=== PATIENT | male | born 1955 ===

== ENCOUNTER 2017-07-24 04:34 | Emergency (ER) | payer OTHER ==
[2017-07-24 05:00] VITALS: BMI 29.2
[2017-07-24 05:02] VITALS: BP 158/85; PULSE 68; RESP 19; TEMP 99.8; O2SAT 97
[2017-07-24 05:18] LABS: RBC URINE 4 /hpf (0-3); URINE BACTERIA RARE (<OCC); URINE BILIRUBIN NEGATIVE (NEGATIVE); URINE BLOOD NEGATIVE (NEGATIVE); URINE COLOR AMBER (YELLOW); URINE GLUCOSE (UA) NEG (Normal); URINE KETONE NEGATIVE (NEGATIVE); URINE LEUKOCYTE ESTERASE NEG Leu/uL (Negative); URINE PROTEIN NEGATIVE (NEGATIVE); WBC URINE 4 /hpf (0-5)
== END 2017-07-24 05:32 | disposition home or self-care (01) ==
LOC: H.ER 04:34
DX: N39.0 Urinary tract infection, site not specified (principal)

== ENCOUNTER 2017-07-24 21:58 | Observation (INO) | payer OTHER ==
[2017-07-24 21:59] VITALS: BMI 29.2
--- NOTE | 2017-07-24 22:29 | ED PDOC ---
HPI: Male Pain Time Seen by Provider: 07/24/17 22:19 Chief Complaint (Nursing): Male Genitourinary Chief Complaint (Provider): Dysuria History Per: Patient History/Exam Limitations: no limitations Onset/Duration Of Symptoms: Hrs Additional Complaint(s): Patient is a 62 y/o male with no significant past medical history presenting to the emergency department for inability to urinate since 2 PM. Reports feeling the urge to urinate but is unable to. Also notes lower supraprubic abdominal pain. Denies back pain, fever, or other complaints. PCP: Dr. Bennie Moeller Past Medical History Reviewed: Historical Data, Nursing Documentation, Vital Signs Vital Signs: Last Vital Signs Temp 99.0 F 07/24/17 22:13 Pulse 65 07/24/17 22:13 Resp 16 07/24/17 22:13 BP 173/99 H 07/24/17 22:13 Pulse Ox 99 07/24/17 22:13 - Medical History PMH: CAD Denies: Arthritis, Asthma, Atrial Fibrillation, CHF, COPD, Diabetes, HTN, Hypercholesterolemia, Seizures - Surgical History Surgical History: Denies: CABG, Pacemaker - Family History Family History: Denies: CAD - Social History Current smoker - smoking cessation education provided: No Ex-Smoker (has not smoked in the last 12 months): No Alcohol: None Drugs: Denies - Immunization History Hx Tetanus Toxoid Vaccination: No Hx Influenza Vaccination: No Hx Pneumococcal Vaccination: No - Home Medications Home Medications: Ambulatory Orders Medication Instructions Recorded Cyclobenzaprine [Flexeril] 10 mg PO TID 07/18/16 [id number] Ethyl Esters 1 GM 1 gm PO BID 07/18/16 [Lovaza] Omeprazole 20 mg PO DAILY 07/18/16 Pravastatin Sodium [Pravachol] 40 mg PO DAILY 07/18/16 Clopidogrel [Plavix] 75 mg PO DAILY 07/31/16 Metoprolol Tartrate [Lopressor] 50 mg PO BID 07/31/16 Olmesartan [BenicarNf] 20 mg PO DAILY 07/31/16 Aspirin [Adult Low Dose Aspirin EC] 1 tab PO DAILY 08/06/16 Ticagrelor [Brilinta] 90 mg PO BID #0 tab 09/03/16 Ciprofloxacin [Cipro] 500 mg PO BID 7 Days tab 07/24/17 Ibuprofen [Motrin Tab] 600 mg PO Q6 #30 tab 07/24/17 - Allergies Allergies/Adverse Reactions: Allergies Allergy/AdvReac Type Severity Reaction Status Date / Time No Known Allergies Allergy Verified 07/24/17 22:13 Review of Systems ROS Statement: Except As Marked, All Systems Reviewed And Found Negative Constitutional: Negative for: Fever Genitourinary Male: Positive for: Dysuria (inability to urinate), Other (lower suprapubic pain) Musculoskeletal: Negative for: Back Pain Physical Exam - Reviewed Nursing Documentation Reviewed: Yes Vital Signs Reviewed: Yes - Physical Exam Appears: Positive for: Well, Non-toxic, No Acute Distress Head Exam: Positive for: ATRAUMATIC, NORMAL INSPECTION, NORMOCEPHALIC Skin: Positive for: Normal Color, Warm, Dry Eye Exam: Positive for: Normal appearance ENT: Positive for: Normal ENT Inspection Neck: Positive for: Normal Cardiovascular/Chest: Positive for: Regular Rate, Rhythm. Negative for: Murmur Respiratory: Positive for: Normal Breath Sounds. Negative for: Accessory Muscle Use, Respiratory Distress Gastrointestinal/Abdominal: Positive for: Distended (suprapubic) Back: Positive for: Normal Inspection Extremity: Positive for: Normal ROM. Negative for: Pedal Edema Neurologic/Psych: Positive for: Alert, Oriented (x3). Negative for: Motor/ Sensory Deficits - Laboratory Results Result Diagrams: 07/24/17 23:20 07/24/17 23:20 - ECG O2 Sat by Pulse Oximetry: 99 (RA) Pulse Ox Interpretation: Normal Medical Decision Making Medical Decision Makin:25 Mason catheter will be inserted. Bladder scan reveals 388 ml urine Attempted to place 16 Fr mason, unable to pass. Attempted to pass 20 FR Cude tip unable to pass. Blood in catheter and from meatus. Discussed with Dr. Pino. Will come in and place suprapubic cath. Scribe Attestation: Documented by Danielle Fried, acting as a scribe for Jose Little MD. Provider Scribe Attestation: All medical record entries made by the Scribe were at my direction and personally dictated by me. I have reviewed the chart and agree that the record accurately reflects my personal performance of the history, physical exam, medical decision making, and the department course for this patient. I have also personally directed, reviewed, and agree with the discharge instructions and disposition. Disposition - Clinical Impression Clinical Impression: Urinary retention - Patient ED Disposition Is Patient to be Admitted: Yes - Disposition Disposition Time: 00:09 Condition: FAIR Forms: [facility] (Estonian) - Pt Status Changed To: Hospital Disposition Of: Observation - POA Present On Arrival: None
[2017-07-24] MEDS ORDERED: Sodium Chloride 0.9% 1,000 ML IV STA (23:00)
[2017-07-24] MEDS ORDERED: Lidocaine 2% Inj (20ml) SC ONE (23:00)
[2017-07-24] MEDS ORDERED: Lidocaine 2% Inj (20ml) ONE (23:05)
[2017-07-24 23:24] LABS: BASO # 0.1 K/uL (0.0-0.2); BASO % 0.6 % (0.0-2.0); EOS # 0.1 K/uL (0.0-0.7); EOS % 0.3 % (0.0-4.0); HEMATOCRIT 43.3 % (35.0-51.0); LYMPH # 2.7 K/uL (1.0-4.3); LYMPH % 15.4 % (20.0-40.0); MEAN CELL VOLUME 89.2 fl (80.0-94.0); MEAN CORPUSCULAR HEMOGLOBIN 29.6 pg (27.0-31.0); MEAN CORPUSCULAR HGB CONC 33.2 g/dL (33.0-37.0); MEAN PLATELET VOLUME 10.8 fl (7.2-11.7); MONO # 1.7 K/uL (0.0-0.8); MONO % 9.7 % (0.0-10.0); NRBC % 0.1 % (0.0-0.0); RED CELL DISTRIBUTION WIDTH 13.6 % (11.5-14.5); WHITE BLOOD COUNT 17.6 K/uL (4.8-10.8)
[2017-07-24 23:33] LABS: ALB/GLOB RATIO 1.2 (1.0-2.1); ALKALINE PHOSPHATASE 80 U/L (38-126); ALT/SGPT 36 U/L (21-72); AST/SGOT 26 U/L (17-59); BILIRUBIN,TOTAL 1.4 mg/dl (0.2-1.3); BLOOD UREA NITROGEN 10 mg/dl (9-20); CALCIUM 9.6 mg/dL (8.4-10.2); CARBON DIOXIDE 20 mmol/L (22-30); CHLORIDE 105 mmol/L (98-107); GFR AFRICAN-AMERICAN > 60; GLUCOSE,RANDOM 186 mg/dL (75-110); POTASSIUM 3.9 MMOL/L (3.6-5.0); SODIUM 139 mmol/l (132-148); TOTAL PROTEIN 8.1 G/DL (6.3-8.2)
[2017-07-25] MEDS ORDERED: cefTRIAXone (Rocephin) 1 gm Inj ONE (00:26)
--- NOTE | 2017-07-25 02:10 | CP.PCM.HP ---
History of Present Illness - History of Present Illness History of Present Illness: PCP: Bennie Moeller MD Chief Complaint: Cannot urinate HPI: 62 years old male with hx sheila CAD and cardio cath in 2016 Comes for the second time within 24 hours to the ED with dysuria, suprapubic pain and not being able to urinate. On the first visit the urine was +ve for UTI and patient was discharged with Cipro. he returned later because he still could not urinate. Attempts at Urethral catheterization was initially unsuccessful. Consultation was done with the Urologist Dr Pino who Inserted a suprapubic catheter. PMH: CAD PSH: denies surgical hx SH: zno illegal drug use; Uses Alcohol socially; No smoking of cigarettes; Live with family; works [employer]; States, No known family hx Allergies: NKDA Present on Admission - Present on Admission Any Indicators Present on Admission: No History of DVT/PE: No History of Uncontrolled Diabetes: No Urinary Catheter: No Decubitus Ulcer Present: No Review of Systems - Constitutional Constitutional: absent: Anorexia, Chills, Fever, Lethargy - EENT Eyes: absent: Diplopia, Floaters, Photophobia, Requires Corrective Lenses, Sees Flashes Ears: absent: Decreased Hearing, Ear Discharge, Tinnitus Nose/Mouth/Throat: absent: Epistaxis, Nasal Congestion, Sinus Pain, Sinus Pressure - Cardiovascular Cardiovascular: absent: Chest Pain, Dyspnea, Edema - Respiratory Respiratory: absent: Cough, Dyspnea, Wheezing, Snoring, Stridor, Chest Congestion - Gastrointestinal Gastrointestinal: Abdominal Pain. absent: Constipation, Diarrhea, Nausea, Vomiting - Genitourinary Genitourinary: Dysuria. absent: Flank Pain, Hematuria, Urinary Frequency Additional comments: Suprapubic pains. - Musculoskeletal Musculoskeletal: absent: Arthralgias, Back Pain, Muscle Weakness, Neck Pain - Integumentary Integumentary: absent: Pruritus, Rash, Skin Ulcer, Sores, Striae, Swelling - Neurological Neurological: absent: Confusion, Focal Weakness, Headaches, Vertigo, Weakness - Psychiatric Psychiatric: absent: Anxiety, Depression, Panic Attacks - Endocrine Endocrine: absent: Fatigue, Polydipsia, Polyphagia, Polyuria - Hematologic/Lymphatic Hematologic: absent: Easy Bleeding, Easy Bruising Past Patient History - Infectious Disease Hx of Infectious Diseases: None - Past Medical History & Family History Past Medical History?: Yes - Past Social History Smoking Status: Never Smoked Chewing Tobacco Use: No Cigar Use: No Alcohol: Social Drugs: Denies Home Situation {Lives}: With Family - CARDIAC Hx Cardiac Disorders: Yes Hx Atrial Fibrillation: No Hx Congestive Heart Failure: No Hx Hypercholesterolemia: No Hx Hypertension: No Hx Pacemaker: No Other/Comment: CAD - PULMONARY Hx Asthma: No Hx Chronic Obstructive Pulmonary Disease (COPD): No - NEUROLOGICAL Hx Seizures: No - HEENT Hx HEENT Problems: No - RENAL Hx Chronic Kidney Disease: No - ENDOCRINE/METABOLIC Hx Endocrine Disorders: No - HEMATOLOGICAL/ONCOLOGICAL Hx Blood Disorders: No Hx Blood Transfusions: No - INTEGUMENTARY Hx Dermatological Problems: No - MUSCULOSKELETAL/RHEUMATOLOGICAL Hx Musculoskeletal Disorders: Yes (TENDONITIS) - GASTROINTESTINAL Hx Gastrointestinal Disorders: No - GENITOURINARY/GYNECOLOGICAL Hx Genitourinary Disorders: No - PSYCHIATRIC Hx Psychophysiologic Disorder: No Hx Emotional Abuse: No Hx Physical Abuse: No Hx Substance Use: No - SURGICAL HISTORY Hx Surgeries: No Hx Coronary Artery Bypass Graft: No - ANESTHESIA Hx Anesthesia: No Hx Anesthesia Reactions: No Hx Malignant Hyperthermia: No Meds Allergies/Adverse Reactions: Allergies Allergy/AdvReac Type Severity Reaction Status Date / Time No Known Allergies Allergy Verified 07/24/17 22:13 Physical Exam - Constitutional Appears: No Acute Distress - Head Exam Head Exam: ATRAUMATIC, NORMAL INSPECTION, NORMOCEPHALIC - Eye Exam Eye Exam: EOMI, Normal appearance Pupil Exam: NORMAL ACCOMODATION, PERRL - ENT Exam ENT Exam: Mucous Membranes Moist, Normal Exam - Neck Exam Neck exam: Positive for: Full Rom, Normal Inspection. Negative for: Lymphadenopathy, Tenderness - Respiratory Exam Respiratory Exam: Clear to Auscultation Bilateral. absent: Decreased Breath Sounds, Rhonchi, Wheezes - Cardiovascular Exam Cardiovascular Exam: REGULAR RHYTHM, RRR, +S1, +S2. absent: Gallop, JVD - GI/Abdominal Exam GI & Abdominal Exam: Normal Bowel Sounds, Soft. absent: Mass, Organomegaly Additional comments: Suprapubic tenderness on palpation. - Rectal Exam Rectal Exam: Deferred - Extremities Exam Extremities exam: Positive for: full ROM, normal inspection. Negative for: pedal edema - Back Exam Back exam: NORMAL INSPECTION. absent: CVA tenderness (L), CVA tenderness (R) - Neurological Exam Neurological exam: Alert, CN II-XII Intact, Oriented x3, Reflexes Normal - Psychiatric Exam Psychiatric exam: Normal Affect, Normal Mood - Skin Skin Exam: Dry, Intact, Normal Color, Warm Results - Vital Signs Recent Vital Signs: Last Vital Signs Temp 98.2 F 07/25/17 02:00 Pulse 60 07/25/17 02:00 Resp 16 07/25/17 02:00 BP 117/68 07/25/17 02:00 Pulse Ox 98 07/25/17 02:00 - Labs Result Diagrams: 07/24/17 23:20 07/24/17 23:20 Labs: Laboratory Results - last 24 hr 07/24/17 07/24/17 23:20 23:20 WBC 17.6 H RBC 4.85 Hgb 14.3 Hct 43.3 MCV 89.2 MCH 29.6 MCHC 33.2 RDW 13.6 Plt Count 132 MPV 10.8 Neut % (Auto) 74.0 Lymph % (Auto) 15.4 L [place] % (Auto) 9.7 Eos % (Auto) 0.3 Baso % (Auto) 0.6 Neut # 13.0 H Lymph # 2.7 [place] # 1.7 H Eos # 0.1 Baso # 0.1 Sodium 139 Potassium 3.9 Chloride 105 Carbon Dioxide 20 L Anion Gap 18 BUN 10 Creatinine 0.7 L Est GFR ( Amer) > 60 Est GFR (Non-Af Amer) > 60 Random Glucose 186 H Calcium 9.6 Total Bilirubin 1.4 H AST 26 ALT 36 Alkaline Phosphatase 80 Total Protein 8.1 Albumin 4.4 Globulin 3.7 Albumin/Globulin Ratio 1.2 Assessment & Plan - Assessment and Plan (Free Text) Assessment: #. Urinary Retention #. UTI #. Leukocytosis Plan: 62 years old male with hx sheila CAD and cardio cath in 2016 Comes for the second time within 24 hours to the ED with dysuria, suprapubic pain and not being able to urinate. On the first visit the urine was +ve for UTI and patient was discharged with Cipro. he returned later because he still could not urinate. Attempts at Urethral catheterization was initially unsuccessful. Consultation was done with the Urologist Dr Pino who Inserted a suprapubic catheter in ED #. Urinary Retention - Consult Dr Pino - Monitor Suprapubic Catheter function #. UTI - Rocephin IVPB #. Leukocytosis - follow WBC #. CAD - ASA/ Plavix/ metoprolol #. DVT prophylaxis with SCD #. Code Status: Full - Date & Time Date: 07/25/17 Time: 02:10
[2017-07-25 06:23] LABS: BASO % 0.1 % (0.0-2.0); EOS % 0.1 % (0.0-4.0); HEMATOCRIT 38.4 % (35.0-51.0); LYMPH # 2.5 K/uL (1.0-4.3); LYMPH % 16.7 % (20.0-40.0); MEAN CELL VOLUME 90.1 fl (80.0-94.0); MEAN CORPUSCULAR HEMOGLOBIN 29.3 pg (27.0-31.0); MEAN CORPUSCULAR HGB CONC 32.5 g/dL (33.0-37.0); MEAN PLATELET VOLUME 11.5 fl (7.2-11.7); MONO # 1.5 K/uL (0.0-0.8); NEUT # 10.9 K/uL (1.8-7.0); NEUT % 73.1 % (50.0-75.0); RED CELL DISTRIBUTION WIDTH 13.6 % (11.5-14.5); WHITE BLOOD COUNT 14.9 K/uL (4.8-10.8)
[2017-07-25] MEDS ORDERED: Influenza Vaccine 18yr & older 0.5 ML/45 MCG SYR IM ONE (08:00)
[2017-07-25] MEDS ORDERED: Pneumococcal 23-Valent Vaccine IM ONE (08:00)
[2017-07-25] MEDS ORDERED: OLMESARTAN 20 MG PO SCH (09:00)
[2017-07-25] MEDS ORDERED: Enoxaparin 40 mg Syringe SC SCH (09:00)
[2017-07-25] MEDS: Pantoprazole 20 mg EC Tab PO SCH (09:06)
[2017-07-25] MEDS: Omega-3-Acid Ethyl Esters 1 GM Cap PO SCH ×2 (09:06→16:35)
[2017-07-25] MEDS: Pravastatin Sodium 40 MG TAB PO SCH (09:06)
[2017-07-25 13:09] LABS: RBC URINE 64 /hpf (0-3); URINE BACTERIA RARE (<OCC); URINE BILIRUBIN NEGATIVE (NEGATIVE); URINE BLOOD LARGE (NEGATIVE); URINE COLOR YELLOW (YELLOW); URINE GLUCOSE (UA) NEG (Normal); URINE KETONE NEGATIVE (NEGATIVE); URINE LEUKOCYTE ESTERASE NEG Leu/uL (Negative); URINE PROTEIN 100 mg/dL (NEGATIVE); URINE UROBILINOGEN 0.2-1.0 mg/dL (0.2-1.0); WBC URINE 5 /hpf (0-5)
[2017-07-25 15:36] VITALS: TEMP 98.5
--- NOTE | 2017-07-25 19:53 | CP.PCM.PN ---
Subjective - Date & Time of Evaluation Date of Evaluation: 07/25/17 Time of Evaluation: 19:50 - Subjective Subjective: UrologyI came in midnight lasst night to insert a suprapubic tube for acute urine retention and traumatic attemptys at mason insertion. The SPT is draininmg well .m He ias on iv antibiotoics onmce wbc normalizes he can be discharghed and wuill fgollow up in my office. Pt has my info Objective - Vital Signs/Intake and Output Vital Signs (last 24 hours): Temp Pulse Resp BP Pulse Ox 98.5 F 54 L 17 104/60 98 07/25/17 15:35 07/25/17 16:36 07/25/17 15:35 07/25/17 16:36 07/25/17 15:35 Intake and Output: 07/25/17 07/26/17 18:59 06:59 Output Total 1050 Balance -1050 - Medications Medications: Current Medications Aspirin (Ecotrin) 81 mg PO DAILY [facility] Last Admin: 07/25/17 09:05 Dose: 81 mg Clopidogrel Bisulfate (Plavix) 75 mg PO DAILY [facility] Last Admin: 07/25/17 09:06 Dose: 75 mg Finasteride (Proscar) 5 mg PO DAILY [facility] Last Admin: 07/25/17 12:58 Dose: 5 mg Ceftriaxone Sodium 1 gm/ (Sodium Chloride) 100 mls @ 100 mls/hr IVPB DAILY@ 0000 [facility] PRN Reason: Protocol Losartan Potassium (Cozaar) 50 mg PO DAILY [facility] Last Admin: 07/25/17 09:05 Dose: 50 mg Metoprolol Tartrate (Lopressor) 50 mg PO BID [facility] Last Admin: 07/25/17 16:36 Dose: Not Given Crdww-3-Milj Ethyl Esters (Lovaza) 1 gm PO BID [facility] Last Admin: 07/25/17 16:35 Dose: 1 gm Pantoprazole Sodium (Protonix Ec Tab) 20 mg PO DAILY [facility] Last Admin: 07/25/17 09:06 Dose: 20 mg Pravastatin Sodium (Pravachol) 40 mg PO DAILY [facility] Last Admin: 07/25/17 09:06 Dose: 40 mg Tamsulosin HCl (Flomax) 0.4 mg PO DAILY [facility] Last Admin: 07/25/17 13:00 Dose: 0.4 mg - Labs Labs: 07/25/17 05:20 07/24/17 23:20
[2017-07-26 00:49] VITALS: RESP 20
[2017-07-26 06:58] LABS: BASO % 0.4 % (0.0-2.0); EOS # 0.1 K/uL (0.0-0.7); HEMATOCRIT 37.4 % (35.0-51.0); LYMPH # 2.5 K/uL (1.0-4.3); MEAN CELL VOLUME 89.8 fl (80.0-94.0); MEAN CORPUSCULAR HEMOGLOBIN 29.9 pg (27.0-31.0); MEAN CORPUSCULAR HGB CONC 33.3 g/dL (33.0-37.0); MEAN PLATELET VOLUME 11.4 fl (7.2-11.7); MONO # 0.9 K/uL (0.0-0.8); MONO % 10.5 % (0.0-10.0); NEUT # 5.4 K/uL (1.8-7.0); NEUT % 60.1 % (50.0-75.0); NRBC % 0.1 % (0.0-0.0); RED CELL DISTRIBUTION WIDTH 13.5 % (11.5-14.5); WHITE BLOOD COUNT 8.9 K/uL (4.8-10.8)
--- NOTE | 2017-07-26 07:39 | CP.PCM.DIS ---
Provider - Provider Date of Admission: 07/25/17 00:07 Attending physician: Lane Reyna Primary care physician: Dr. Moeller Consults: Urology consult Time Spent in preparation of Discharge (in minutes): 15 Hospital Course - Lab Results Lab Results: Most Recent Lab Values WBC 8.9 K/uL (4.8-10.8) 07/26/17 05:30 RBC 4.16 Mil/uL (4.40-5.90) L 07/26/17 05:30 Hgb 12.4 g/dL (12.0-18.0) 07/26/17 05:30 Hct 37.4 % (35.0-51.0) 07/26/17 05:30 MCV 89.8 fl (80.0-94.0) 07/26/17 05:30 MCH 29.9 pg (27.0-31.0) 07/26/17 05:30 MCHC 33.3 g/dL (33.0-37.0) 07/26/17 05:30 RDW 13.5 % (11.5-14.5) 07/26/17 05:30 Plt Count 134 K/uL (130-400) 07/26/17 05:30 MPV 11.4 fl (7.2-11.7) 07/26/17 05:30 Neut % (Auto) 60.1 % (50.0-75.0) 07/26/17 05:30 Lymph % (Auto) 28.0 % (20.0-40.0) 07/26/17 05:30 [place] % (Auto) 10.5 % (0.0-10.0) H 07/26/17 05:30 Eos % (Auto) 1.0 % (0.0-4.0) 07/26/17 05:30 Baso % (Auto) 0.4 % (0.0-2.0) 07/26/17 05:30 Neut # 5.4 K/uL (1.8-7.0) 07/26/17 05:30 Lymph # 2.5 K/uL (1.0-4.3) 07/26/17 05:30 [place] # 0.9 K/uL (0.0-0.8) H 07/26/17 05:30 Eos # 0.1 K/uL (0.0-0.7) 07/26/17 05:30 Baso # 0.0 K/uL (0.0-0.2) 07/26/17 05:30 Sodium 139 mmol/l (132-148) 07/24/17 23:20 Potassium 3.9 MMOL/L (3.6-5.0) 07/24/17 23:20 Chloride 105 mmol/L (98-107) 07/24/17 23:20 Carbon Dioxide 20 mmol/L (22-30) L 07/24/17 23:20 Anion Gap 18 (10-20) 07/24/17 23:20 BUN 10 mg/dl (9-20) 07/24/17 23:20 Creatinine 0.7 mg/dL (0.8-1.5) L 07/24/17 23:20 Est GFR ( Amer) > 60 07/24/17 23:20 Est GFR (Non-Af Amer) > 60 07/24/17 23:20 Random Glucose 186 mg/dL (75-110) H 07/24/17 23:20 Calcium 9.6 mg/dL (8.4-10.2) 07/24/17 23:20 Total Bilirubin 1.4 mg/dl (0.2-1.3) H 07/24/17 23:20 AST 26 U/L (17-59) 07/24/17 23:20 ALT 36 U/L (21-72) 07/24/17 23:20 Alkaline Phosphatase 80 U/L (38-126) 07/24/17 23:20 Total Protein 8.1 G/DL (6.3-8.2) 07/24/17 23:20 Albumin 4.4 g/dL (3.5-5.0) 07/24/17 23:20 Globulin 3.7 gm/dL (2.2-3.9) 07/24/17 23:20 Albumin/Globulin Ratio 1.2 (1.0-2.1) 07/24/17 23:20 Urine Color Yellow (YELLOW) 07/25/17 12:00 Urine Clarity Slighty-cloudy (Clear) 07/25/17 12:00 Urine pH 6.0 (5.0-8.0) 07/25/17 12:00 Ur Specific [employer] 1.009 (1.003-1.030) 07/25/17 12:00 Urine Protein 100 mg/dL (NEGATIVE) 07/25/17 12:00 Urine Glucose (UA) Neg mg/dL (Normal) 07/25/17 12:00 Urine Ketones Negative mg/dL (NEGATIVE) 07/25/17 12:00 Urine Blood Large (NEGATIVE) 07/25/17 12:00 Urine Nitrate Negative (NEGATIVE) 07/25/17 12:00 Urine Bilirubin Negative (NEGATIVE) 07/25/17 12:00 Urine Urobilinogen 0.2-1.0 mg/dL (0.2-1.0) 07/25/17 12:00 Ur Leukocyte Esterase Neg [place]/uL (Negative) 07/25/17 12:00 Urine RBC (Auto) 64 /hpf (0-3) H 07/25/17 12:00 Urine Microscopic WBC 5 /hpf (0-5) 07/25/17 12:00 Ur Squamous Epith Cells < 1 /hpf (0-5) 07/25/17 12:00 Urine Bacteria Rare (<OCC) 07/25/17 12:00 - Hospital Course Hospital Course: 62 years old male with hx of CAD and cath in 2016 Came for the second time within 24 hours to the ED with dysuria, suprapubic pain and not being able to urinate. On the first visit the urine was +ve for UTI and patient was discharged with Cipro. He returned later because he still could not urinate. Attempts at Urethral catheterization was unsuccessful. Consultation was done with the Urologist Dr Pino who Inserted a suprapubic catheter in ED. Patient was placed under observation , started on Flomax, finasteride and Rocephin IV for possible UTI. His WBC trended down to normal and he remained hemodynamically stable, afebrile. Cleraed by urology for discharge home on Po Flomax, finasteride and Cipro and follow up in the office in 1 week All explained to patient who agrees with plan Will discharge patient home 1. Urinary Retention secondary to BPH urology Dr Pino consulted Strated Flomax and Finasteride placed Suprapubic Catheter fand workinghg well. will keep catheter in place Will d/c with follow upw ith urollogist as out patient 2. UTI started Rocephin IVPB Will d/c on Cipro PO for 7 days 3. Leukocytosis probably reactive and secondary to UTI normalized continue Cipro Po 4. CAD stable continue ASA/ Plavix/ metoprolol Discharge Exam - Head Exam Head Exam: ATRAUMATIC, NORMAL INSPECTION, NORMOCEPHALIC - Eye Exam Eye Exam: EOMI, Normal appearance, PERRL Pupil Exam: NORMAL ACCOMODATION - ENT Exam ENT Exam: Mucous Membranes Moist, Normal Exam - Neck Exam Neck exam: Full Rom, Normal Inspection - Respiratory Exam Respiratory Exam: Clear to PA & Lateral, NORMAL BREATHING PATTERN. absent: Rales, Rhonchi, Wheezes - Cardiovascular Exam Cardiovascular Exam: REGULAR RHYTHM, RRR, +S1, +S2. absent: JVD - GI/Abdominal Exam GI & Abdominal Exam: Normal Bowel Sounds, Soft. absent: Guarding, Rebound, Tenderness Additional comments: suprapubic catheter in place - Rectal Exam Rectal Exam: Deferred - Extremities Exam Extremities exam: normal capillary refill, normal inspection, pedal pulses present - Back Exam Back exam: NORMAL INSPECTION - Neurological Exam Neurological exam: Alert, CN II-XII Intact, Oriented x3, Reflexes Normal - Psychiatric Exam Psychiatric exam: Normal Affect, Normal Mood - Skin Skin Exam: Dry, Intact, Normal Color, Warm Discharge Plan - Discharge Medications Prescriptions: Ciprofloxacin [Cipro] 500 mg PO BID 7 Days tab Finasteride [Proscar] 5 mg PO DAILY #30 tab Losartan [Cozaar] 50 mg PO DAILY #30 tab Tamsulosin [Flomax] 0.4 mg PO DAILY #30 cap - Follow Up Plan Condition: STABLE Disposition: HOME/ ROUTINE Patient education suggested?: Yes Instructions: Urinary Retention in Men (GEN), How to Care for Your Suprapubic Catheter (DC), How to Care for Your Suprapubic Catheter (GEN) Referrals: Abril Pino MD [Medical Doctor] - Bennie Moeller MD [Staff Provider] -
[2017-07-26 08:14] VITALS: O2SAT 100
[2017-07-26 08:25] LABS: ALB/GLOB RATIO 1.2 (1.0-2.1); ALKALINE PHOSPHATASE 69 U/L (38-126); ALT/SGPT 40 U/L (21-72); AST/SGOT 27 U/L (17-59); BILIRUBIN,TOTAL 0.7 mg/dl (0.2-1.3); BLOOD UREA NITROGEN 11 mg/dl (9-20); CALCIUM 8.8 mg/dL (8.4-10.2); CARBON DIOXIDE 23 mmol/L (22-30); CHLORIDE 109 mmol/L (98-107); GFR AFRICAN-AMERICAN > 60; GLUCOSE,RANDOM 117 mg/dL (75-110); POTASSIUM 3.9 MMOL/L (3.6-5.0); SODIUM 146 mmol/l (132-148); TOTAL PROTEIN 6.9 G/DL (6.3-8.2)
[2017-07-26] MEDS: Omega-3-Acid Ethyl Esters 1 GM Cap PO SCH (09:38)
[2017-07-26 09:39] VITALS: BP 132/74; PULSE 61
[2017-07-26] MEDS: Pravastatin Sodium 40 MG TAB PO SCH (09:39)
[2017-07-26] MEDS: Pantoprazole 20 mg EC Tab PO SCH (09:39)
== END 2017-07-26 10:14 | disposition home or self-care (01) ==
LOC: H.ER 21:58 → H.ERHOLD 07-25 00:07 → H.MEDSURG1 07-25 02:43
PROVIDERS: ADMIT Internal Medicine; ATTEND Internal Medicine
DX: N40.1 Benign prostatic hyperplasia with lower urinary tract symptoms (principal); N39.0 Urinary tract infection, site not specified; I25.10 Atherosclerotic heart disease of native coronary artery without angina pectoris; R33.8 Other retention of urine; Z79.02 Long term (current) use of antithrombotics/antiplatelets; Z79.82 Long term (current) use of aspirin; Z79.899 Other long term (current) drug therapy; Z23 Encounter for immunization
CPT/HCPCS: 36415; 80053; 81003; 85025; 87040; 87086; 90471; 90472; 90732; 96374; 96375; 99285; G0378; J0696; J1650; J1885; J2270; J7040; Q2035

== ENCOUNTER 2018-02-08 10:50 | Emergency (ER) | payer OTHER ==
[2018-02-08 10:55] VITALS: BMI 28.9
[2018-02-08 11:02] VITALS: O2SAT 98
--- NOTE | 2018-02-08 12:11 | ED PDOC ---
HPI: Male Pain Time Seen by Provider: 02/08/18 11:03 Chief Complaint (Nursing): Male Genitourinary Chief Complaint (Provider): Swelling to Right Testicle, UTI History Per: Patient History/Exam Limitations: no limitations Onset/Duration Of Symptoms: Persistent, Other (x2 weeks) Current Symptoms Are (Timing): Still Present Pain Scale Rating Of: 5 Quality Of Discomfort: "Pain" Associated Symptoms: Urinary Symptoms (dysuria and urinary frequency 1 week ago , have since resolved). denies: Nausea, Vomiting, Back Pain, Other (penile discharge, hematuria ) Additional Complaint(s): 62 year old male with a past medical history of hypertension and high cholesterol presents to the ED for evaluation of swelling to the right testicle , onset 2 weeks ago. Patient currently rates the pain 5/10 at present. Reports he saw PMD at onset of symptom and was given course of an unknown antibiotic for 7 days without relief. Symptoms persisted so he returned to the PMD last Friday and was started on Macrobid and Alfuzosin, which he has been compliant with. Patient states his doctor told him to go to the ED if swelling did not improve by Friday. Patient presents with lab work from 02/05/18 showing urine culture, positive for E.Coli. Patient reports at onset of symptoms two weeks ago , he had tactile fever, dysuria, and urinary frequency. Denies flank pain, vomiting, nausea, back pain, abdominal pain, recent fever within the past week, penile discharge, hematuria, and no new sexual partners. PMD: Dr. Pino Past Medical History Reviewed: Historical Data, Nursing Documentation, Vital Signs Vital Signs: Last Vital Signs Temp 97 F L 02/08/18 10:54 Pulse 87 02/08/18 10:54 Resp 18 02/08/18 11:16 BP 120/74 02/08/18 10:54 Pulse Ox 98 02/08/18 10:59 - Medical History PMH: CAD, HTN, Hyperlipidemia Denies: Asthma, Atrial Fibrillation, CHF, COPD, Diabetes, Hypercholesterolemia, Chronic Kidney Disease, Seizures - Surgical History Surgical History: Denies: No Surg Hx - Family History Family History: States: Unknown Family Hx - Living Arrangements Living Arrangements: With Family - Social History Current smoker - smoking cessation education provided: No Alcohol: None Drugs: Denies - Home Medications Home Medications: Ambulatory Orders Medication Instructions Recorded Cyclobenzaprine [Flexeril] 10 mg PO TID 07/18/16 [id number] Ethyl Esters 1 GM 1 gm PO BID 07/18/16 [Lovaza] Omeprazole 20 mg PO DAILY 07/18/16 Pravastatin Sodium [Pravachol] 40 mg PO DAILY 07/18/16 Clopidogrel [Plavix] 75 mg PO DAILY 07/31/16 Metoprolol Tartrate [Lopressor] 50 mg PO BID 07/31/16 Olmesartan [BenicarNf] 20 mg PO DAILY 07/31/16 Aspirin [Adult Low Dose Aspirin EC] 1 tab PO DAILY 08/06/16 Ticagrelor [Brilinta] 90 mg PO BID #0 tab 09/03/16 Ibuprofen [Motrin Tab] 600 mg PO Q6 #30 tab 07/24/17 Ciprofloxacin [Cipro] 500 mg PO BID 7 Days tab 07/26/17 Finasteride [Proscar] 5 mg PO DAILY #30 tab 07/26/17 Losartan [Cozaar] 50 mg PO DAILY #30 tab 07/26/17 Tamsulosin [Flomax] 0.4 mg PO DAILY #30 cap 07/26/17 Cephalexin [cephalexin] 500 mg PO BID #20 cap 02/08/18 Meloxicam [Mobic] 15 mg PO DAILY #10 tab 02/08/18 - Allergies Allergies/Adverse Reactions: Allergies Allergy/AdvReac Type Severity Reaction Status Date / Time No Known Allergies Allergy Verified 02/08/18 10:58 Review of Systems ROS Statement: Except As Marked, All Systems Reviewed And Found Negative Constitutional: Negative for: Fever (recent within the past week) Gastrointestinal: Negative for: Nausea, Vomiting, Abdominal Pain Genitourinary Male: Positive for: Dysuria, Frequency. Negative for: Hematuria, Penile Discharge, Penile Pain Musculoskeletal: Negative for: Back Pain, Other (flank pain) Physical Exam - Reviewed Nursing Documentation Reviewed: Yes Vital Signs Reviewed: Yes - Physical Exam Appears: Positive for: Well, Non-toxic, No Acute Distress Head Exam: Positive for: ATRAUMATIC, NORMOCEPHALIC Skin: Positive for: Normal Color, Warm, Dry Eye Exam: Positive for: EOMI, PERRL Neck: Positive for: Painless ROM, Supple Cardiovascular/Chest: Positive for: Regular Rate, Rhythm. Negative for: Murmur Respiratory: Positive for: Normal Breath Sounds. Negative for: Decreased Breath Sounds, Accessory Muscle Use, Stridor, Wheezing, Respiratory Distress Gastrointestinal/Abdominal: Positive for: Bowel Sounds (active x4), Soft. Negative for: Tenderness, Mass, Distended, Guarding Male Genital Exam: Positive for: normal genitalia (uncircumcised male, no rash, no vesicles, no ulcers, no penile drainage ), testicular tenderness (R) ( moderate swelling, tenderness to palpation), other (Upon foreskin retraction, no evidence of balanitis, paraphimosis, and phimosis. Mail Processing Clerk: Marlene THOMAS RN). Negative for: inguinal tenderness, lesions, testicular tenderness (L), urethral discharge Back: Negative for: L CVA Tenderness, R CVA Tenderness Extremity: Positive for: Normal ROM Neurologic/Psych: Positive for: Alert, Oriented (x3), Gait (steady in ED). Negative for: Motor/Sensory Deficits - Laboratory Results Result Diagrams: 02/08/18 12:56 02/08/18 12:56 - ECG O2 Sat by Pulse Oximetry: 98 (RA) Pulse Ox Interpretation: Normal Medical Decision Making Medical Decision Making: Time: 1141 Initial Impression: Testicular swelling, UTI Initial Plan: --CMP --CBC w/ differential --Urine Culture --Urinalysis --Testes Duplex complete [US] --Reevaluation 1300 U/S reviewed, radiology report follows Creator : Lukas Urena MD Report Date : 02/08/2018 12:58:19 HISTORY: testicular swelling x2wks, UTI TECHNIQUE: Realtime sonography through the scrotum with color and doppler flow. COMPARISON: None Available. FINDINGS: RIGHT TESTICLE: Measures 4.0 x 2.6 x 2.5 cm. Normal echotexture and flow. RIGHT EPIDIDYMIS: Epididymal head measures 1.6 x 1.0 x 1.3 cm. Grossly unremarkable appearance with normal flow. LEFT TESTICLE: Measures 4.1 x 1.9 x 2.7 cm. Normal echotexture and flow. LEFT EPIDIDYMIS: Epididymal head measures 1.2 x 0.9 x 01.2 cm. Grossly unremarkable appearance with normal flow. HYDROCELE: Right larger than left hydroceles. VARICOCELE: Not adequately evaluated on imaging OTHER FINDINGS: None. IMPRESSION: Increased vascularity of the right epididymis and testicle which can be seen with epididymo-orchitis. Moderate to large right hydrocele. Small left hydrocele. U/A reviewed and unremarkable. Awaiting lab results. Consult placed to Dr Pino. [address] Pino, who advised to discontinue Macrobid and discharge the patient with Keflex 500mg BID x 10 days and Mobic 15mg PO QD and to have the patient follow up with him once the medication is completed. Keflex PO and Toradol IVP ordered. 1455 On re-evaluation, patient reports improvement of symptoms. On exam, patient remains AAOx3, in no acute distress. Lungs clear to auscultation, cardiac RRR, abdomen soft, non-tender, repeat neuro exam shows no focal findings. VSS. Lab/Diagnostic results d/w the patient in great detail. Diagnosis of epididymo- orchitis, testicular swelling d/w the patient. Based on history, exam and diagnostic results, plan will be for outpatient follow up with Dr Pino. Patient instructed to follow-up with pmd / referral provided / the clinic in 1- 2 days without fail. Advised to take medication as prescribed. Return to the emergency room at any time for any new or worsening symptoms. Patient states he fully agrees with and understands discharge instructions. States that he agrees with the plan and disposition. Verbalized and repeated discharge instructions and plan. I have given the patient opportunity to ask any additional questions. Scribe Attestation: Documented by Edilberto Rod, acting as a scribe for Sindhu Crane PA-C Provider Scribe Attestation: All medical record entries made by the Scribe were at my direction and personally dictated by me. I have reviewed the chart and agree that the record accurately reflects my personal performance of the history, physical exam, medical decision making, and the department course for this patient. I have also personally directed, reviewed, and agree with the discharge instructions and disposition. Disposition - Clinical Impression Clinical Impression: Scrotal swelling, Epididymo-orchitis, acute, Hydrocele in adult - Patient ED Disposition Is Patient to be Admitted: No Discussed With : Abril Pino Doctor Will See Patient In The: Office (in 10 days) Counseled Patient/Family Regarding: Studies Performed, Diagnosis, Need For Followup, Rx Given - Disposition Referrals: Abril Pino MD [Medical Doctor] - Disposition: Routine/Home Disposition Time: 14:57 Condition: STABLE Prescriptions: Cephalexin [cephalexin] 500 mg PO BID #20 cap Meloxicam [Mobic] 15 mg PO DAILY #10 tab Instructions: Hydrocele, Epididymo-orchitis (ED) Forms: [employer] (Macedonian) Print Language: ROMANSH - POA Present On Arrival: None Results - Lab Results Lab Results: 02/08/18 02/08/18 02/08/18 12:56 12:56 12:40 WBC 6.5 RBC 4.71 Hgb 14.0 Hct 40.8 MCV 86.6 D MCH 29.7 MCHC 34.3 RDW 13.5 Plt Count 217 MPV 9.8 Neut % (Auto) 43.3 L Lymph % (Auto) 38.8 Dodge % (Auto) 14.9 H Eos % (Auto) 2.3 Baso % (Auto) 0.7 Neut # (Auto) 2.8 Lymph # (Auto) 2.5 Dodge # (Auto) 1.0 H Eos # (Auto) 0.1 Baso # (Auto) 0.0 Sodium 145 Potassium 4.7 Chloride 105 Carbon Dioxide 27 Anion Gap 18 BUN 12 Creatinine 0.7 L Est GFR ( Amer) > 60 Est GFR (Non-Af Amer) > 60 Random Glucose 134 H Calcium 9.0 Total Bilirubin 0.7 AST 38 ALT 44 Alkaline Phosphatase 72 Total Protein 8.0 Albumin 3.9 Globulin 4.1 H Albumin/Globulin Ratio 0.9 L Urine Color Yani Urine Clarity Cloudy Urine pH 6.0 Ur Specific Fowler 1.023 Urine Protein Negative Urine Glucose (UA) Neg Urine Ketones Negative Urine Blood Negative Urine Nitrate Negative Urine Bilirubin Negative Urine Urobilinogen 0.2-1.0 Ur Leukocyte Esterase Neg Urine RBC (Auto) 2 Urine Microscopic WBC 5 Hyaline Casts 0-2
[2018-02-08 12:54] LABS: URINE BILIRUBIN NEGATIVE (NEGATIVE); URINE BLOOD NEGATIVE (NEGATIVE); URINE CLARITY CLOUDY (Clear); URINE COLOR AMBER (YELLOW); URINE GLUCOSE (UA) NEG (Normal); URINE HYALINE CAST 0-2 /hpf (0-2); URINE LEUKOCYTE ESTERASE NEG Leu/uL (Negative); URINE PROTEIN NEGATIVE (NEGATIVE); URINE UROBILINOGEN 0.2-1.0 mg/dL (0.2-1.0)
--- NOTE | 2018-02-08 13:00 | US ---
HISTORY: testicular swelling x2wks, UTI TECHNIQUE: Realtime sonography through the scrotum with color and doppler flow. COMPARISON: None Available. FINDINGS: RIGHT TESTICLE: Measures 4.0 x 2.6 x 2.5 cm. Normal echotexture and flow. RIGHT EPIDIDYMIS: Epididymal head measures 1.6 x 1.0 x 1.3 cm. Grossly unremarkable appearance with normal flow. LEFT TESTICLE: Measures 4.1 x 1.9 x 2.7 cm. Normal echotexture and flow. LEFT EPIDIDYMIS: Epididymal head measures 1.2 x 0.9 x 01.2 cm. Grossly unremarkable appearance with normal flow. HYDROCELE: Right larger than left hydroceles. VARICOCELE: Not adequately evaluated on imaging OTHER FINDINGS: None. IMPRESSION: Increased vascularity of the right epididymis and testicle which can be seen with epididymo-orchitis. Moderate to large right hydrocele. Small left hydrocele.
[2018-02-08 13:13] LABS: ALB/GLOB RATIO 0.9 (1.0-2.1); ALBUMIN 3.9 g/dL (3.5-5.0); GFR AFRICAN-AMERICAN > 60; GFR NON-AFRICAN AMERICAN > 60
[2018-02-08 13:17] LABS: ALT/SGPT 44 U/L (21-72); AST/SGOT 38 U/L (17-59); BLOOD UREA NITROGEN 12 mg/dl (9-20)
[2018-02-08 13:21] LABS: BASO % 0.7 % (0.0-2.0); EOS # 0.1 K/uL (0.0-0.7); EOS % 2.3 % (0.0-4.0); LYMPH # 2.5 K/uL (1.0-4.3); LYMPH % 38.8 % (20.0-40.0); MEAN CORPUSCULAR HEMOGLOBIN 29.7 pg (27.0-31.0); MEAN CORPUSCULAR HGB CONC 34.3 g/dL (33.0-37.0); MEAN PLATELET VOLUME 9.8 fl (7.2-11.7); MONO % 14.9 % (0.0-10.0); NEUT # 2.8 K/uL (1.8-7.0); NEUT % 43.3 % (50.0-75.0); NRBC % 0.5 % (0.0-0.0); RBC 4.71 Mil/uL (4.40-5.90); RED CELL DISTRIBUTION WIDTH 13.5 % (11.5-14.5); WHITE BLOOD COUNT 6.5 K/uL (4.8-10.8)
[2018-02-08 13:24] LABS: MEAN CELL VOLUME 86.6 fl (80.0-94.0)
[2018-02-08 14:57] VITALS: BP 132/66; RESP 15; TEMP 98.4
[2018-02-08 15:34] VITALS: PULSE 63
== END 2018-02-08 15:33 | disposition home or self-care (01) ==
LOC: H.ER 10:50
DX: N45.3 Epididymo-orchitis (principal); N43.3 Hydrocele, unspecified; E78.5 Hyperlipidemia, unspecified; I10 Essential (primary) hypertension
CPT/HCPCS: 80053; 81003; 85025; 87086; 93975; 96372; 99283; J1885